=== PATIENT | male | born 1975 | race Caucasian/White ===

== ENCOUNTER → 2017-08-29 | Outpatient (CLI) | payer BC | LOC: M RAD 08:01 | DX: R94.5 Abnormal results of liver function studies (principal) | CPT/HCPCS: 76705 ==

== ENCOUNTER → 2018-01-27 | Outpatient (CLI) | payer BC | LOC: M SLEEP 19:43 | DX: G47.33 Obstructive sleep apnea (adult) (pediatric) (principal); G47.61 Periodic limb movement disorder | CPT/HCPCS: 95810 ==

== ENCOUNTER → 2018-03-10 | Outpatient (CLI) | payer BC | LOC: M SLEEP 19:49 | DX: G47.33 Obstructive sleep apnea (adult) (pediatric) (principal) | CPT/HCPCS: 95811 ==